=== PATIENT | female | born 1990 | race Caucasian/White ===

== ENCOUNTER 2020-06-03 16:40 | Emergency (ER) | payer SELFPAY ==
[2020-06-03] MEDS ORDERED: Sodium Chloride 0.9% 1,000 ML IV ONE (16:44)
[2020-06-03] MEDS ORDERED: Morphine 4 MG/ML Syringe IVPUSH ONE (17:01)
[2020-06-03] MEDS ORDERED: Morphine 4 MG/ML Syringe ONE (17:06)
[2020-06-03 17:23] LABS: BUPRENORPHINE,URINE NEGATIVE (NEGATIVE); MARIJUANA,URINE NEGATIVE (NEGATIVE); METHYLENEDIOXYMETHAMP,UR NEGATIVE (NEGATIVE); PHENCYCLIDINE,URINE NEGATIVE (NEGATIVE)
--- NOTE | 2020-06-03 17:34 | CR ---
[id number] RAD/RAD Pelvis 1-2V EXAM: AP PELVIS CLINICAL DATA: TRAUMA. COMPARISON: None. FINDINGS: Partially imaged comminuted and displaced right femoral shaft fracture. Evaluation of the right hip is mildly limited by an overlying metallic structure. Sacroiliac joints are normal in appearance with no other fracture is identified. IMPRESSION: 1. Partially characterized acute comminuted and displaced right femoral shaft fracture. Lazaro Betts MD 06/03/20 [id number] Thank you for allowing us to participate in the care of your patient.
--- NOTE | 2020-06-03 17:35 | CR ---
[id number] RAD/RAD Chest PA or AP 1V EXAM: FRONTAL CHEST INDICATION: TRAUMA. COMPARISON: None. DISCUSSION: Low lung volumes. No acute infiltrates. No pleural fluid or pneumothorax is identified on this somewhat limited examination. Normal heart size. IMPRESSION: 1. No acute findings. Lazaro Betts MD 06/03/20 [id number] Thank you for allowing us to participate in the care of your patient.
[2020-06-03 17:36] LABS: ANION GAP 17.5 mmol/L (10-20); CHLORIDE,CL 112 mmol/L (98-107); SODIUM,NA 147 mmol/L (136-145)
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
== END 2020-06-03 17:15 | disposition short-term general hospital (02) ==
LOC: VM.ED 16:40
DX: S72.351A Displaced comminuted fracture of shaft of right femur, initial encounter for closed fracture (principal); S61.411A Laceration without foreign body of right hand, initial encounter; S80.812A Abrasion, left lower leg, initial encounter; S80.811A Abrasion, right lower leg, initial encounter; S40.812A Abrasion of left upper arm, initial encounter; S00.511A Abrasion of lip, initial encounter; V89.2XXA Person injured in unspecified motor-vehicle accident, traffic, initial encounter
CPT/HCPCS: 51702; 71045; 72170; 80053; 80305; 80307; 82550; 85025; 86140; 96374; 99284; 99285; J2270; J7030